=== PATIENT | male | born 1955 | race Caucasian/White ===

== ENCOUNTER 2016-12-11 06:14 | Day surgery (SDC) | payer BC ==
[2016-12-04 12:07] VITALS: BMI 32.8
[2016-12-11] MEDS ORDERED: MIDAZOLAM HCL 2 MG/2 ML SINGLE DOSE VIAL ONE (07:02)
[2016-12-11] MEDS ORDERED: PROPOFOL 20 ML ONE ×3 (07:02→08:16)
[2016-12-11] MEDS ORDERED: BUPIVACAINE HCL/EPINEPHRINE/PF 30 ML VIAL IJ ONE (07:23)
[2016-12-11] MEDS ORDERED: DEXAMETHASONE SOD PHOSPHATE 4 MG/1 ML VIAL ONE (08:13)
[2016-12-11] MEDS ORDERED: KETOROLAC TROMETHAMINE 30 MG/1 ML VIAL ONE (08:13)
[2016-12-11] MEDS ORDERED: ONDANSETRON 4 MG/2 ML VIAL ONE (08:13)
[2016-12-11] MEDS ORDERED: ceFAZolin SODIUM 1 GM VIAL ONE (08:15)
--- NOTE | 2016-12-11 08:41 | OP ---
Operative Note - Note: Operative Date: 12/11/16 Pre-Operative Diagnosis: left knee MMT Operation: LKA, PMM Post-Operative Diagnosis: Same as Pre-op Surgeon: Schuyler Cote Anesthesiologist/MEAT COOLER: Gamaliel Vázquez Anesthesia: Local Operative Report Dictated: Yes
--- NOTE | 2016-12-11 08:41 | DS ---
Physical Examination Vital Signs: Vital Signs Temperature 98.8 F 12/11/16 06:45 Pulse Rate 56 L 12/11/16 06:45 Respiratory Rate 16 12/11/16 06:45 Blood Pressure 146/81 12/11/16 06:45 O2 Sat by Pulse Oximetry (%) 98 12/11/16 06:50 Discharge Summary Reason For Visit: MEDIAL MENISCAL TEAR, LEFT KNEE Condition: Good - Instructions Diet, Activity, Other Instructions: Post Operative Instructions: Knee Arthroscopy Dr Schuyler Cote 1. Pain following an arthroscopy is variable. Some patients will have more pain than others. You have been provided with a prescription for medication that contains a narcotic. You are not allowed to drive while on this medication. You should NOT take Tylenol (Acetaminophen) when taking the pain medication ( it will result in an overdose). Feel free to take medications such as Ibuprofen or Naprosyn in addition to the pain medicine if you do not have any problems with the NSAID class of medications. 2. You are allowed to remove the bandages and shower in 24 hours unless directed otherwise. You are not allowed to bathe or go swimming until the sutures are removed. Put band-aids on the sutures after your shower and do not put any creams or lotions over the incisions. 3. You are allowed to put all your weight on the leg and bend your knee, unless directed otherwise. 4. Apply ice to the knee for 15 min every hour or so. You may continue this for as many days as you like. 5. Please call the office to schedule a visit to have your sutures removed. 6. If for any reason you believe you may have an infection or are concerned, please feel free to call me. I can be reached through our office number 24 hours a day. 7. Please call our office with any questions; we will review the surgical findings during your post operative visit. Disposition: HOME - Home Medications Comprehensive Discharge Medication List: Ambulatory Orders Ibuprofen [Advil -] 400 mg PO TID 12/04/16
[2016-12-11 09:28] VITALS: TEMP 98.7
[2016-12-11] MEDS ORDERED: LACTATED RINGERS SOLUTION 1,000 ML IV SCH (10:15)
[2016-12-11 10:33] VITALS: BP 135/74; PULSE 62
[2016-12-11] MEDS ORDERED: ONDANSETRON 4 MG/2 ML VIAL IVPUSH PRN (11:18)
[2016-12-11] MEDS ORDERED: oxyCODONE HCL 5 MG TABLET PO PRN ×2 (11:19)
--- NOTE | 2016-12-15 11:13 | PATH ---
Surgical Pathology Report Patient Name: SANCHEZ HOROWITZ Med. Rec. #: [id number] /Age/Gender: 1955 (Age: 60) / M Account: [id number] Location: [facility] AMBULATORY Taken: 12/11/2016 Received: 12/11/2016 Reported: 12/15/2016 Physicians: Schuyler Cote M.D. Specimen(s) Received LEFT KNEE SHAVINGS Clinical History Medial meniscal tear left knee Final Diagnosis KNEE, LEFT, ARTHROSCOPIC SHAVINGS: FIBROCARTILAGINOUS TISSUE. Electronically Signed Ashlee Riggs M.D. Gross Description Received in formalin, labeled "left knee shavings," is a 3.4 x 2.2 x 0.4 cm. aggregate of arellano-yellow soft tissue fragments. A printing supplies sales representative portion is submitted in one cassette. 12/11/201612/11/2016
== END 2016-12-11 10:30 | disposition home or self-care (01) ==
LOC: FASU 06:14
PROVIDERS: ATTEND Orthopaedic Surgery
PROC: 0SBD4ZZ Excision of Left Knee Joint, Percutaneous Endoscopic Approach (ICD-10-PCS; 2016-12-11)
PROC: 0SBD4ZZ Excision of Left Knee Joint, Percutaneous Endoscopic Approach (ICD-10-PCS; principal; 2016-12-11 08:05)
DX: S83.242A Other tear of medial meniscus, current injury, left knee, initial encounter (principal); X58.XXXA Exposure to other specified factors, initial encounter; Y93.9 Activity, unspecified; Y92.9 Unspecified place or not applicable; M17.12 Unilateral primary osteoarthritis, left knee; M67.52 Plica syndrome, left knee; M65.862 Other synovitis and tenosynovitis, left lower leg
CPT/HCPCS: 88304-TC; 94760